=== PATIENT | male | born 1975 | race Caucasian/White ===

== ENCOUNTER 2021-09-12 14:23 | Observation (INO) | payer BC ==
[~2021-09-12] VITALS: Ht 177.8 cm; Wt 109.3 kg
[2021-09-12 14:55] LABS: BASOPHILS % (AUTO) 0.8 % (0.0-5.0); EOSINOPHILS % (AUTO) 0.7 % (0.0-8.0); HEMATOCRIT 48.4 % (42-54); LYMPHOCYTES % (AUTO) 24.5 % (21.0-51.0); MEAN CORPUSCULAR HGB CONC 33.1 g/dL (32.0-36.0); MEAN CORPUSCULAR VOLUME 84.8 fL (79-99); MONOCYTES % (AUTO) 9.5 % (3.0-13.0); NEUTROPHILS % (AUTO) 63.7 % (40.0-77.0); PLATELET COUNT (AUTO) 346 K/uL (130-400); RED BLOOD CELL COUNT(AUTO) 5.71 MIL/uL (4.50-6.20); RED CELL DISTRIBUTION WIDTH 12.9 % (11.0-15.5); WHITE BLOOD COUNT (AUTO) 11.3 K/uL (4.8-10.8)
[2021-09-12] MEDS ORDERED: PANTOPRAZOLE 40 MG/VIAL IVP ONE (15:00)
[2021-09-12 15:05] LABS: CREATININE 1.3 mg/dL (0.5-1.5); POTASSIUM 4.1 mmol/L (3.5-5.1)
[2021-09-12 15:10] LABS: ALBUMIN 4.3 g/dL (3.5-5.0); BILIRUBIN,TOTAL 0.4 mg/dL (0.2-1.0); TOTAL PROTEIN, SERUM 8.6 g/dL (6.0-8.3)
[2021-09-12] MEDS ORDERED: LIDOCAINE HCL 2% VISCOUS 15 ML UDCUP PO ONE (16:30)
[2021-09-12] MEDS ORDERED: MAG/ALUM/SIMETH 30 ML UDCUP PO ONE (16:30)
[2021-09-12] MEDS ORDERED: DICYCLOMINE HCL 10 MG/5 ML ML PO ONE (16:30)
[2021-09-12] MEDS ORDERED: LORAZEPAM 2 MG/ML 1 ML VIAL IVP ONE (17:00)
[2021-09-12] MEDS ORDERED: NITROGLYCERIN 0.4 MG SL TAB SL ONE (17:14)
[2021-09-12] MEDS ORDERED: NITROGLYCERIN 50MG/D5W 250ML 250 BOT IV SCH (18:00)
[2021-09-12 19:04] LABS: AMPHET/METH SCREEN,URINE NEGATIVE (NEGATIVE); BARBITURATE SCREEN, URINE NEGATIVE (NEGATIVE); BENZODIAZEPINES SCREEN,URINE NEGATIVE (NEGATIVE); CANNABINOID SCREEN,URINE NEGATIVE (NEGATIVE); COCAINE SCREEN,URINE NEGATIVE (NEGATIVE); OPIATE SCREEN,URINE NEGATIVE (NEGATIVE); PHENCYCLIDINE SCREEN,URINE NEGATIVE (NEGATIVE)
[2021-09-12] MEDS ORDERED: ACETAMINOPHEN 325 MG TAB PO PRN (19:30)
[2021-09-12] MEDS ORDERED: HYDRALAZINE 20MG/ML VIAL IV PRN (19:30)
[2021-09-12] MEDS ORDERED: ONDANSETRON 4MG INJ IVP PRN (19:30)
[2021-09-12] MEDS ORDERED: ACETAMINOPHEN 650 MG SUPPOSITORY RC PRN (19:30)
[2021-09-12] MEDS: MORPHINE 4 MG SYG IVP PRN ×2 (19:56→23:39)
[2021-09-12] MEDS: 0.9%NACL 1000ML 1,000 ML IV SCH (19:56)
[2021-09-12 20:26] VITALS: BP 132/81
[2021-09-12] MEDS ORDERED: LISD40CA PO (22:54)
[2021-09-12] MEDS ORDERED: ATOR-2 PO (22:54)
[2021-09-12] MEDS ORDERED: TERB250T89 PO (22:54)
[2021-09-12] MEDS ORDERED: INSU100V37 SQ (22:55)
[2021-09-12] MEDS ORDERED: PREG150C46 PO (22:56)
[2021-09-12] MEDS ORDERED: FENO130C14 PO (22:58)
[2021-09-12] MEDS ORDERED: FENO160 PO (22:59)
[2021-09-12] MEDS ORDERED: LOSA25TA41 PO (23:02)
[2021-09-12] MEDS ORDERED: AMLO5TAB4 PO (23:02)
[2021-09-12] MEDS ORDERED: CLON0.1T2 PO (23:02)
[2021-09-12] MEDS ORDERED: TICA90TA PO (23:02)
[2021-09-12] MEDS ORDERED: TRAM50TA4 PO (23:06)
[2021-09-12] MEDS ORDERED: HYDR-4068 PO (23:07)
[2021-09-12 23:14] VITALS: BP 132/84
[2021-09-12] MEDS: IPRATROPIUM 0.5 MG/2.5 ML INH IH SCH (23:39)
[2021-09-13 02:14] LABS: HEMATOCRIT 44.3 % (42-54); MEAN CORPUSCULAR HEMOGLOBIN 28.4 pg (27.0-33.0); MEAN CORPUSCULAR HGB CONC 33.4 g/dL (32.0-36.0); RED BLOOD CELL COUNT(AUTO) 5.21 MIL/uL (4.50-6.20); WHITE BLOOD COUNT (AUTO) 9.5 K/uL (4.8-10.8)
[2021-09-13] MEDS: MORPHINE 2 MG SYG IVP PRN ×2 (02:16→05:50)
[2021-09-13 02:38] LABS: CREATININE 1.2 mg/dL (0.5-1.5); MAGNESIUM 1.9 mg/dL (1.80-2.40); PHOSPHORUS 4.1 mg/dL (2.5-4.9); POTASSIUM 4.1 mmol/L (3.5-5.1)
[2021-09-13 02:39] LABS: CHOLESTEROL 200 mg/dL (<200); HDL CHOLESTEROL 34 mg/dL (29-71); LDL DIRECT 83 mg/dL (0-99); TRIGLYCERIDES 630 mg/dL (30-200)
[2021-09-13 03:18] VITALS: BP 113/65
[2021-09-13] MEDS: IPRATROPIUM 0.5 MG/2.5 ML INH IH SCH (06:00)
[2021-09-13 07:00] VITALS: BP 115/64
[2021-09-13] MEDS ORDERED: LISDEXAMFETAMINE DIMESYLATE 40 MG PO SCH (09:00)
[2021-09-13] MEDS ORDERED: INSULIN GLARGINE 100 UNITS/ML 10 ML VIAL SQ SCH (09:00)
[2021-09-13] MEDS ORDERED: LOSARTAN 25 MG TABLET PO SCH (09:00)
[2021-09-13] MEDS ORDERED: ENOXAPARIN SODIUM 40 MG/0.4 ML SYRINGE SQ SCH (09:00)
[2021-09-13] MEDS ORDERED: TICAGRELOR 90 MG TABLET PO SCH (09:00)
[2021-09-13] MEDS ORDERED: AMLODIPINE 5 MG TAB PO SCH (09:00)
[2021-09-13] MEDS ORDERED: PREGABALIN 75 MG CAPSULE PO SCH (09:00)
[2021-09-13] MEDS ORDERED: KETOROLAC 15MG/ML VIAL (15MG/ML) IV PRN (10:30)
[2021-09-13 11:00] VITALS: BP 133/58
[2021-09-13] MEDS: 0.9%NACL 1000ML 1,000 ML IV SCH (15:30)
[2021-09-13] MEDS ORDERED: IPRATROPIUM 0.5 MG/2.5 ML INH IH PRN (16:00)
[2021-09-13] MEDS ORDERED: ATORVASTATIN 40 MG TABLET PO SCH (21:00)
[2021-09-13] MEDS ORDERED: FENOFIBRATE NANOCRYSTALLIZED 145 MG TAB PO SCH (21:00)
[2021-09-13] MEDS ORDERED: DOXYCYCLINE HYCLATE 100 MG TABLET PO SCH (21:00)
== END 2021-09-13 16:48 | disposition home or self-care (01) ==
LOC: EDH 14:23 → UNDOADMOB 18:10 → OBSVTOIN 18:10 → INTOOBSV 18:10 → EDHIP 18:10 → OBSVTOIN 19:18 → INTOOBSV 19:18 → 2AH 20:16
PROVIDERS: ADMIT Internal Medicine Critical Care Medicine; ATTEND Internal Medicine Critical Care Medicine
DX: I25.119 Atherosclerotic heart disease of native coronary artery with unspecified angina pectoris (principal); I24.9 Acute ischemic heart disease, unspecified; E78.1 Pure hyperglyceridemia; D72.829 Elevated white blood cell count, unspecified; E87.1 Hypo-osmolality and hyponatremia; E11.65 Type 2 diabetes mellitus with hyperglycemia; E78.5 Hyperlipidemia, unspecified; E66.9 Obesity, unspecified; E78.00 Pure hypercholesterolemia, unspecified; I10 Essential (primary) hypertension; F41.9 Anxiety disorder, unspecified; Z88.0 Allergy status to penicillin; Z87.891 Personal history of nicotine dependence; Z79.899 Other long term (current) drug therapy; Z68.35 Body mass index [BMI] 35.0-35.9, adult; Z79.02 Long term (current) use of antithrombotics/antiplatelets; Z79.4 Long term (current) use of insulin; Z91.14 Patient's other noncompliance with medication regimen; Z95.5 Presence of coronary angioplasty implant and graft
CPT/HCPCS: 36415 ×2; 71045 ×2; 80048; 80053; 80061; 80305; 82550 ×3; 82948 ×3; 83735; 83874 ×3; 84100; 84484 ×5; 85025; 85027; 85378; 93005 ×2; 96361 ×2; 96372; 96374; 96375; 96376 ×2; 99285; C9113; G0378 ×22; J1650; J1885; J2060; J2270 ×2; J7030